=== PATIENT | male | born 1945 | race Caucasian/White ===

== ENCOUNTER → 2017-08-13 | Outpatient (CLI) | payer MEDICARE, OTHER ==
[~2017-08-13] MED LIST: ALBU90OI INH; ALBU90OI6; ARTAIN; ASPI81CH PO; ATOR10; CALCAVITD; CHOL10002 PO; CYCL10 PO; DIAZ5; DIAZ5 PO; DIGO.125 PO; DILT120ERA PO; DILTIAZEM 24HR180 M1; DONE10 PO; ELIQUIS5 MG; ERGO400 PO; FURO20 PO; GUAI600T33 PO; HYDACE5 PO; METO50 PO; MULVITMIND PO; MUSCLE RELAXER; NYST100SU PO; OMEP20ER PO; PRED10 PO; TIZANIDINE HCL2 MG; TIZANIDINE HCL2 MG PO; Trihexyphenidyl5 MG; Trihexyphenidyl5 MG PO; VICODIN 5-3001 EACH PO; VITAMIN D PO; WARF2.5 PO; WARF5 PO
[2017-08-13 12:39] LABS: International Normalized Ratio 1.78; Prothrombin Time Results 18.8 Sec (9.7-11.5)
== END | disposition home or self-care (01) ==
LOC: LAB SHORT 12:02
PROVIDERS: Internal Medicine Interventional Cardiology
DX: I48.92 Unspecified atrial flutter (principal); I48.91 Unspecified atrial fibrillation
CPT/HCPCS: 36415; 85610

== ENCOUNTER 2017-09-20 07:07 | Day surgery (SDC) | payer MEDICARE, OTHER ==
[~2017-09-20] VITALS: Ht 139.7 cm; Wt 73.0 kg
== END 2017-09-20 22:45 | disposition home or self-care (01) ==
LOC: MHTC 07:07
PROC: 4A023FZ Measurement of Cardiac Rhythm, Percutaneous Approach (ICD-10-PCS; principal; 2017-09-20)
PROC: 4A0234Z Measurement of Cardiac Electrical Activity, Percutaneous Approach (ICD-10-PCS; principal; 2017-09-20)
PROC: 02583ZZ Destruction of Conduction Mechanism, Percutaneous Approach (ICD-10-PCS; principal; 2017-09-20)
PROC: 02K83ZZ Map Conduction Mechanism, Percutaneous Approach (ICD-10-PCS; principal; 2017-09-20)
DX: I48.92 Unspecified atrial flutter (principal); K21.9 Gastro-esophageal reflux disease without esophagitis; E88.81 Metabolic syndrome and other insulin resistance; E78.5 Hyperlipidemia, unspecified; I50.22 Chronic systolic (congestive) heart failure; I34.0 Nonrheumatic mitral (valve) insufficiency; Z86.73 Personal history of transient ischemic attack (TIA), and cerebral infarction without residual deficits; Z79.899 Other long term (current) drug therapy; Z79.01 Long term (current) use of anticoagulants; Z87.891 Personal history of nicotine dependence; Z98.1 Arthrodesis status; Z85.820 Personal history of malignant melanoma of skin; Z90.49 Acquired absence of other specified parts of digestive tract
CPT/HCPCS: 76937; 93613; 93623; 93653; 99152; 99153; C1731; C1732; C1769; C1893; C1894; J1644; J2250; J3010; J7030; J7040; J7050

== ENCOUNTER 2019-02-10 11:40 | Observation (INO) | payer MEDICARE, OTHER ==
[~2019-02-10] VITALS: Ht 170.2 cm; Wt 74.2 kg
[~2019-02-10 11:40] MED LIST changes: -CHOL10002 PO; -CYCL10 PO; -Trihexyphenidyl5 MG; -VICODIN 5-3001 EACH PO
[2019-02-10 12:09] LABS: BASOPHILS ABSOLUTE AUTO 0.07 K/mm3 (0.00-0.23); BASOPHILS PERCENT AUTO 1 % (0-2); EOSINOPHILS ABSOLUTE AUTO 0.28 K/mm3 (0.00-0.68); EOSINOPHILS PERCENT AUTO 2 % (0-6); Hematocrit 41.6 % (37.0-53.0); IMMATURE GRAN ABSOLUTE AUTO 0.03 K/mm3 (0.00-0.10); IMMATURE GRAN PERCENT AUTO 0 % (0-1); LYMPHOCYTES ABSOLUTE AUTO 4.04 K/mm3 (0.84-5.20); LYMPHOCYTES PERCENT AUTO 34 % (21-46); MONOCYTES ABSOLUTE AUTO 1.03 K/mm3 (0.16-1.47); MONOCYTES PERCENT AUTO 9 % (4-13); Mean Corpuscular HGB Conc 33.7 g/dL (31.5-36.5); Mean Corpuscular Volume 101 fL (80-100); Mean Platelet Volume 11.4 fL (9.1-12.4); NEUTROPHILS ABSOLUTE AUTO 6.37 K/mm3 (1.96-9.15); NEUTROPHILS PERCENT AUTO 54 % (41-73); NRBC ABSOLUTE 0.02 K/mm3 (0.00-0.02); NRBC Auto 0.2 /100 WBC (0.0-0.2); Platelet Count 314 K/mm3 (150-400); RDW Coefficient Variation 14.7 % (11.7-14.2); RDW Standard Deviation 54.4 fL (35.1-46.3); Red Blood Cell Count 4.12 M/mm3 (4.30-5.90); White Blood Cell Count 11.82 K/mm3 (4.00-11.30)
[2019-02-10 12:28] LABS: Alanine Aminotransfer (ALT/SGP 20 U/L (12-78); Albumin, Blood 3.5 g/dL (3.4-5.0); Albumin/Globulin Ratio 0.9 (0.8-1.8); Alk Phos 90 U/L (50-136); Anion Gap 8 mmol/L (6-16); Aspartate Aminotrans (AST/SGOT 18 U/L (12-37); Bilirubin, Total 0.5 mg/dL (0.1-1.0); Blood Urea Nitrogen 10 mg/dL (8-24); Bun/Creatinine Ratio 12.3 (12.0-20.0); CO2, Blood 23 mmol/L (21-32); Calcium, Blood 8.5 mg/dL (8.5-10.1); Chloride, Blood 109 mmol/L (98-108); Creatinine, Blood 0.81 mg/dL (0.60-1.20); Glomerular Filtration Rate >60 (60-); Glucose, Blood 132 mg/dL (70-99); Magnesium, Blood 1.9 mg/dL (1.6-2.4); Sodium, Blood 140 mmol/L (136-145); Total Protein, Blood 7.5 g/dL (6.4-8.2); Troponin I 0.062 ng/mL (0.000-0.040)
[2019-02-10] MEDS ORDERED: Hydrocodone-Ap1 EA23 PO (12:28)
[2019-02-10 12:33] LABS: International Normalized Ratio 1.2; Prothrombin Time Results 12.5 Sec (9.7-11.5)
[2019-02-10] MEDS ORDERED: OMEP20ER PO (12:40)
[2019-02-10] MEDS ORDERED: DIAZ5 PO (12:40)
[2019-02-10] MEDS ORDERED: Trihexyphenidyl5 MG PO (12:41)
[2019-02-10] MEDS ORDERED: Cyclobenzaprine5 MG PO (12:41)
[2019-02-10] MEDS ORDERED: CHOL10002 PO (12:45)
[2019-02-10] MEDS ORDERED: THERA1 EACH PO (12:46)
--- NOTE | 2019-02-10 19:41 | NUR ---
ARRIVAL AND SHIFT SUMMARY PT ARRIVED TO UNIT APPROX. 1745 FROM ED VIA GURNERY. PT ABLE TO AMBULATE TO BATHROOM BEFORE AMBUALTING TO BED. ORIENTED PT TO ROOM, UNIT AND POLICIES. VITAL SIGNS STABLE AND ASSESSMENT COMPLETED. PT ALERT AND ORIENTED TO SELF, PLACE AND TIME AND FOLLOWS DIRECTIONS. PT REPROTS THAT HIS MEMORY IS BAD FROM SURGERY AND STROKE WHEN HE WAS A TEENAGER. PT SHORT TERM MEMORY SEEMS TO BE BETTER THAN CUSTODIAL. PT FIDGETS ALOT. RIGHT SIDE DEFICITS NOTE. PT AHS RIGHT SIDE WEAKNESS AND RIGHT FOOT TURNS IN AND RIGHT HAND STIFF BUT PT ABLE TO FUNCTION WELL WITH THIS. PT REPORTS THAT HE IS UNABLE TO REMEMEBR NAMES OF THE MEDICATIONS HE TAKES AT HOME. ATTEMPTED TO INQUIRE ABOUT EMDICATION HISTORY AND PT REPORTS HE IS UNABLE TO REMEBER THINGS WELL. PT HEART RATE SINCE ARRIVAL TO UNIT NSR IN 80'S VIA TITLE I TEACHER. BED IN LOW POSITION, CALL LIGHT IN REACH AND PT DENIES ANY NEEDS AT THIS TIME. WILL CONTINUE TO MONITOR UNTIL HANDOFF TO NIGHTSHIFT RN.
--- NOTE | 2019-02-11 04:09 | NUR ---
CARDIZEM TURNED OFF. HR AVG 80'S
[2019-02-11 04:30] LABS: Anion Gap 7 mmol/L (6-16); Blood Urea Nitrogen 8 mg/dL (8-24); Bun/Creatinine Ratio 9.9 (12.0-20.0); CO2, Blood 25 mmol/L (21-32); Calcium, Blood 8.3 mg/dL (8.5-10.1); Chloride, Blood 107 mmol/L (98-108); Creatinine, Blood 0.81 mg/dL (0.60-1.20); Glomerular Filtration Rate >60 (60-); Glucose, Blood 118 mg/dL (70-99); Potassium, Blood 3.8 mmol/L (3.5-5.5); Sodium, Blood 139 mmol/L (136-145); Troponin I 0.102 ng/mL (0.000-0.040)
--- NOTE | 2019-02-11 05:24 | NUR ---
SHIFT SUMMARY PT SLEEPING IN ROOM COMFORTABLY AT THIS TIME. PT HEARTRATE HAS SLOWED AND RHYTHYM BECAE MORE REGULAR, PT MAINTAINED NSR IN THE 80'S FOR >3HRS. CARDIZEM GTT WAS DC'D AT 0400. PT DENIES ANY CP OR SOB. RESP EVEN UNLABORED ON RA W/ SATS >92%. PT SLEEPING WELL T/O NIGHT, CALLS APPROPRIATELY. CALL LIGHT IN REACH.
--- NOTE | 2019-02-11 07:47 | NUR ---
Assumed care of the patient after report from Jessica Meyer RN. The pt is awake, alert, and denies any discomfort or abnormal symptoms. Noted sinus rhythm since arrival to PCU yesterday at approx 1800. Premature atrial and ventricular beats noted, but no atrial fibrillation since arrival from ED. Per report, cardizem drip was turned off at 0400 after the pt's heart rate had been consistently in the 80s range for 2 hours.
--- NOTE | 2019-02-11 15:45 | NUR ---
Patient is in the discharge process and eager to leave. He is told it will be an hour or so. 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 Patient also tell about his liliana journey (He currently attends [employer] in [place]). I listen empathically, reinforce helpful attitudes and practices, conduct a life review, explore zoroastrian beliefs and provide prayer. Patient responds well and shows signs of an elevated mood.
[2019-02-11] MEDS ORDERED: DILT120 PO (16:08)
[2019-02-11] MEDS ORDERED: XARELTO20 MG PO (16:08)
== END 2019-02-11 16:33 | disposition home or self-care (01) ==
LOC: ER 11:40 → PCU 16:31 → ER 16:31 → PCU 16:31
PROVIDERS: Emergency Medicine; Family Medicine; ADMIT Hospitalist
DX: I48.0 Paroxysmal atrial fibrillation (principal); I69.351 Hemiplegia and hemiparesis following cerebral infarction affecting right dominant side; E78.5 Hyperlipidemia, unspecified; G30.9 Alzheimer's disease, unspecified; F02.80 Dementia in other diseases classified elsewhere, unspecified severity, without behavioral disturbance, psychotic disturbance, mood disturbance, and anxiety; I11.0 Hypertensive heart disease with heart failure; I50.22 Chronic systolic (congestive) heart failure; Z79.899 Other long term (current) drug therapy; Z87.74 Personal history of (corrected) congenital malformations of heart and circulatory system
CPT/HCPCS: 36415; 71045; 80048; 80053; 83735; 84484; 85025; 85610; 85730; 93005; 93010; 96365; 96366; 96375; 96376; 99285-25; G0378; J0153; J7030

== ENCOUNTER 2020-02-25 06:46 | Day surgery (SDC) | payer MEDICARE, OTHER ==
[~2020-02-25] VITALS: Ht 165.1 cm; Wt 74.0 kg
[~2020-02-25 06:46] MED LIST changes: +CHOL10002 PO; +Cyclobenzaprine5 MG PO; +DILT120 PO; +DONEPEZIL HCL10 MG PO; +Hydrocodone-Ap1 EA23 PO; +MEMA5TAB PO; +THERA1 EACH PO; +XARELTO20 MG PO
[2020-02-25] MEDS ORDERED: DILTIAZEM 24HR240 M4 PO (08:06)
[2020-02-25] MEDS ORDERED: Vitamin D2000 UNIT PO (08:06)
[2020-02-25] MEDS ORDERED: ASPI81CH PO (08:06)
--- NOTE | 2020-02-25 10:56 | NUR ---
DR. BECK HERE TO DISCUSS PROCEDURE RESULTS.
[2020-02-25] MEDS ORDERED: CLOP75 PO (12:17)
--- NOTE | 2020-02-25 12:40 | NUR ---
2 CC AIR REMOVED FROM TR BAND ON RIGHT AND LEFT. NO BLEEDING AT SITE.
--- NOTE | 2020-02-25 12:55 | NUR ---
remainder of aire removed from left TR band. no bleeding at site. Remainder of air removed from right TR band. Bleeding at site. 4 cc air instilled. No bleeding at site.
--- NOTE | 2020-02-25 13:09 | NUR ---
DISCHARGE INSTRUCTIONS GIVEN TO PATIENT AND WITH WRITTEN UND VERBAL UNDERSTANDING.
--- NOTE | 2020-02-25 14:25 | NUR ---
RIGHT TR BAND REMOVED. NO BLEEDING AT SITE. CLOTH DOTH, IMMOBILIZER AND SLING APPLIED.
--- NOTE | 2020-02-25 14:30 | NUR ---
LEFT TR BAND REMOVED. NO BLEEDING AT SITE. CLOTH DOTH, IMMOBILIZER AND SLING APPLIED.
--- NOTE | 2020-02-25 14:35 | NUR ---
IV REMOVED INTACT. 2X2,COBAN AND MANUAL PRESSURE APPLIED.
--- NOTE | 2020-02-25 14:50 | NUR ---
DISCHARGED HOME VIA WHEELCHAIR. DRIVING. SCRIPT FOR PLAVIX, STENT CARD IN FOLDER.
== END 2020-02-25 14:45 | disposition home or self-care (01) ==
LOC: MHTC 06:46
PROC: 4A023N7 Measurement of Cardiac Sampling and Pressure, Left Heart, Percutaneous Approach (ICD-10-PCS; principal; 2020-02-25)
PROC: B201YZZ Plain Radiography of Multiple Coronary Arteries using Other Contrast (ICD-10-PCS; principal; 2020-02-25)
DX: I25.118 Atherosclerotic heart disease of native coronary artery with other forms of angina pectoris (principal); E78.5 Hyperlipidemia, unspecified; K21.9 Gastro-esophageal reflux disease without esophagitis; F32.9 Major depressive disorder, single episode, unspecified; I49.3 Ventricular premature depolarization; I11.0 Hypertensive heart disease with heart failure; I50.20 Unspecified systolic (congestive) heart failure; I08.3 Combined rheumatic disorders of mitral, aortic and tricuspid valves; Z87.891 Personal history of nicotine dependence; Z79.82 Long term (current) use of aspirin; Z79.01 Long term (current) use of anticoagulants; Z79.899 Other long term (current) drug therapy; Z86.73 Personal history of transient ischemic attack (TIA), and cerebral infarction without residual deficits
CPT/HCPCS: 76937; 85347; 93454; 99152; 99153; C1725; C1769; C1874; C1887; C1894; C9600; J1644; J2250; J3010; J7030; J7040; J7050; Q9967

== ENCOUNTER 2020-11-15 09:55 | Day surgery (SDC) | payer MEDICARE, OTHER ==
[~2020-11-15] VITALS: Ht 170.2 cm; Wt 68.2 kg
[~2020-11-15 09:55] MED LIST changes: +CLOP75 PO; +DILTIAZEM 24HR240 M4 PO; +Vitamin D2000 UNIT PO
[2020-11-15] MEDS ORDERED: ATOR20 PO (11:05)
[2020-11-15] MEDS ORDERED: TAMS.4ER PO (11:05)
--- NOTE | 2020-11-15 14:42 | NUR ---
ARRIVAL TO UNIT PT ARRIVED FROM PACU. REPORTS PAIN AT 4 OR 5 OUT OF 10. PT STATES THIS IS TOLERABLE FOR HIM. IV FLUIDS INFUSING FROM PACU. PT ARRIVED ON 3L SATS 97% TITRATED DOWN TO 2L CURRENTLY 98%. WILL CONTINUE TO TITRATE DOWN. PT DENIES OXYGEN AT BASELINE. Shashank ACUÑA IS CDI. POLAR ANYA IS ON AND IN PLACE. SCD'S ON. PT HAS CALL LIGHT IN REACH, EDUCATED ON ITS USE. CURRENTLY EATING JELLO AND TAKING SMALL SIPS OF WATER, DENIES NAUSEA.
--- NOTE | 2020-11-15 18:26 | NUR ---
SHIFT SUMMARY S/P LTHA PT AA0X4, AQUACEL IS CDI. POLAR ANYA IN PLACE. PT MEDICATED FOR PAIN PER EMAR. REPORTS 8/10 PAIN. CURRENTLY PAIN IS TOLERABLE FOR PATIENT. ABLE TO WORK WITH THERAPY, PT REPORTS FEELING BETTER AFTER MOVING. DENIES N/V, TOLERATING PO WELL. WEAKNESS ON RIGHT SIDE OF BODY IS NORMAL FOR PATIENT R/T STROKE WHEN HE WAS 13. PLAN IS TO WORK WITH THERAPY AGAIN TOMORROW.
[2020-11-16 04:50] LABS: BASOPHILS ABSOLUTE AUTO 0.03 K/mm3 (0.00-0.23); BASOPHILS PERCENT AUTO 0 % (0-2); EOSINOPHILS PERCENT AUTO 0 % (0-6); Hematocrit 33.3 % (37.0-53.0); IMMATURE GRAN ABSOLUTE AUTO 0.13 K/mm3 (0.00-0.10); IMMATURE GRAN PERCENT AUTO 1 % (0-1); LYMPHOCYTES PERCENT AUTO 9 % (21-46); MONOCYTES ABSOLUTE AUTO 2.46 K/mm3 (0.16-1.47); MONOCYTES PERCENT AUTO 10 % (4-13); Mean Corpuscular HGB 33.7 pg (26.0-34.0); Mean Corpuscular Volume 102 fL (80-100); NEUTROPHILS ABSOLUTE AUTO 19.01 K/mm3 (1.96-9.15); NEUTROPHILS PERCENT AUTO 80 % (41-73); Platelet Count 233 K/mm3 (150-400); RDW Coefficient Variation 13.9 % (11.7-14.2); RDW Standard Deviation 52.7 fL (35.1-46.3); Red Blood Cell Count 3.26 M/mm3 (4.30-5.90); White Blood Cell Count 23.83 K/mm3 (4.00-11.30)
[2020-11-16 05:11] LABS: Anion Gap 7 mmol/L (6-16); Blood Urea Nitrogen 18 mg/dL (8-24); Bun/Creatinine Ratio 15.8 (12.0-20.0); CO2, Blood 25 mmol/L (21-32); Calcium, Blood 8.3 mg/dL (8.5-10.1); Chloride, Blood 103 mmol/L (98-108); Creatinine, Blood 1.14 mg/dL (0.60-1.20); Glomerular Filtration Rate >60 (60-); Glucose, Blood 203 mg/dL (70-99); Magnesium, Blood 1.8 mg/dL (1.6-2.4); Potassium, Blood 4.3 mmol/L (3.5-5.5); Sodium, Blood 135 mmol/L (136-145)
--- NOTE | 2020-11-16 06:35 | NUR ---
SHIFT SUMMARY A/OX3, AMBULATING HALLS WITH 1 ASSIST FWW AND GB. C/O PAIN TO L. HIP, MEDICATED PER EMAR. CURRENTLY REPORTS 07/11 PAIN. AQUACEL C/D/I, POLAR PACK IN PLACE. ENCOURAGED USE OF INCENTIVE SPIROMETER, CONTINUE TO REINFORCE. VSS, NO ACUTE CHANGES AT THIS TIME. BED IN LOWEST POSITION WITH CALL LIGHT IN REACH. WILL CONTINUE TO MONITOR AND REPORT TO ONCOMING RN.
[2020-11-16] MEDS ORDERED: ACET500 PO (12:22)
[2020-11-16] MEDS ORDERED: OXYC5 PO (12:23)
--- NOTE | 2020-11-16 13:30 | NUR ---
DISCHARGE SUMMARY PT A&OX3-4, SONU PO, VOIDING, PAIN MANAGED, AMB W/FWW & GB & SBA. PRESENT FOR DC INSTRUCTIONS. DC INSTRUCTIONS PROVIDED. PT AND REP UNDERSTANDING THOSE INSTRUCTIONS INCLUDING CALL DR FOR PT ORDER AND FU APPT SCHEDULE, WHEN AND HOW TO CHANGE DRESSINGS, SHORT FREQUENT AMB WITH REST PERIODS WITH BLE ELEVATED, USE POLAR ANYA ( REP HAVING ICE BOTTLES READY). PT LEFT FLOOR VIA WC WITH ALL PERSONAL POSSESSIONS INCLUDING 2 AQUACEL DRESSINGS AND 1 NARC SCRIPT IN DC PACKET INSTRUCTIONS. IV DC'D.
== END 2020-11-16 13:28 | disposition home or self-care (01) ==
LOC: SURS 09:55 → ORSCMMR 09:55 → ORD 11:45 → ORSCMMR 11:45 → SURS 14:38 → ORSCMMR 11-16 13:28
PROVIDERS: Orthopaedic Surgery
PROC: 0SRB0JA Replacement of Left Hip Joint with Synthetic Substitute, Uncemented, Open Approach (ICD-10-PCS; principal; 2020-11-15 11:45)
DX: M16.12 Unilateral primary osteoarthritis, left hip (principal); G47.33 Obstructive sleep apnea (adult) (pediatric); F32.9 Major depressive disorder, single episode, unspecified; E78.5 Hyperlipidemia, unspecified; Z86.73 Personal history of transient ischemic attack (TIA), and cerebral infarction without residual deficits; Z79.899 Other long term (current) drug therapy
CPT/HCPCS: 36415; 72170; 80048; 83735; 85025; 97110; 97116; 97162; A9270; C1776; J0171; J0690; J0735; J1100; J1885; J2250; J2405; J2704; J2795; J3010; J7120

== ENCOUNTER → 2022-12-13 | Outpatient (CLI) | payer MEDICARE, OTHER ==
[~2022-12-13] MED LIST changes: +ACET500 PO; +ATOR20 PO; +OXYC5 PO; +TAMS.4ER PO
[2022-12-13 13:00] LABS: BASOPHILS ABSOLUTE AUTO 0.11 K/mm3 (0.00-0.23); BASOPHILS PERCENT AUTO 1 % (0-2); EOSINOPHILS ABSOLUTE AUTO 0.86 K/mm3 (0.00-0.68); EOSINOPHILS PERCENT AUTO 7 % (0-6); Hematocrit 39.4 % (37.0-53.0); Hemoglobin 13.2 g/dL (13.5-17.5); IMMATURE GRAN ABSOLUTE AUTO 0.04 K/mm3 (0.00-0.10); IMMATURE GRAN PERCENT AUTO 0 % (0-1); LYMPHOCYTES ABSOLUTE AUTO 3.68 K/mm3 (0.84-5.20); LYMPHOCYTES PERCENT AUTO 29 % (21-46); MONOCYTES ABSOLUTE AUTO 1.15 K/mm3 (0.16-1.47); MONOCYTES PERCENT AUTO 9 % (4-13); Mean Corpuscular HGB 32.4 pg (26.0-34.0); Mean Corpuscular HGB Conc 33.5 g/dL (31.5-36.5); Mean Corpuscular Volume 97 fL (80-100); Mean Platelet Volume 12.2 fL (9.1-12.4); NEUTROPHILS ABSOLUTE AUTO 6.96 K/mm3 (1.96-9.15); NEUTROPHILS PERCENT AUTO 54 % (41-73); Platelet Count 323 K/mm3 (150-400); RDW Coefficient Variation 14.5 % (11.7-14.2); RDW Standard Deviation 51.9 fL (35.1-46.3); Red Blood Cell Count 4.07 M/mm3 (4.30-5.90)
[2022-12-13 13:54] LABS: Alanine Aminotransfer (ALT/SGP 29 U/L (12-78); Albumin, Blood 3.7 g/dL (3.4-5.0); Albumin/Globulin Ratio 0.9 (0.8-1.8); Alk Phos 125 U/L (50-136); Anion Gap 8 mmol/L (6-16); Aspartate Aminotrans (AST/SGOT 25 U/L (12-37); Bilirubin, Total 0.4 mg/dL (0.1-1.0); Blood Urea Nitrogen 18 mg/dL (8-24); Bun/Creatinine Ratio 19.2 (12.0-20.0); CHOL/HDL RATIO 2.1; CO2, Blood 25 mmol/L (21-32); Calcium, Blood 9.1 mg/dL (8.5-10.1); Chloride, Blood 103 mmol/L (98-108); Cholesterol 129 mg/dL (50-200); Creatinine, Blood 0.94 mg/dL (0.60-1.20); Globulin, Blood 4.1 g/dL (2.2-4.0); Glomerular Filtration Rate 83 (60-); Glucose, Blood 348 mg/dL (70-99); HDL Cholesterol 62 mg/dL (>39); LDL/HDL RATIO 0.8; Low Density Lipoprotein Chol 48 mg/dL (0-110); PSA, %Free 20.3 %; Potassium, Blood 3.8 mmol/L (3.5-5.5); Sodium, Blood 136 mmol/L (136-145); Total Protein, Blood 7.8 g/dL (6.4-8.2); Triglycerides 93 mg/dL (30-160); Very Low Density Lipoprot Chol 18 mg/dL (6-32)
== END | disposition home or self-care (01) ==
LOC: LAB 10:30 → LAB SHORT 10:30
PROVIDERS: Family Medicine
DX: I10 Essential (primary) hypertension (principal); N40.1 Benign prostatic hyperplasia with lower urinary tract symptoms; E11.8 Type 2 diabetes mellitus with unspecified complications
CPT/HCPCS: 80053; 80061; 83036; 84153; 84154; 85025

== ENCOUNTER 2023-01-13 10:17 | Emergency (ER) | payer MEDICARE, OTHER ==
[~2023-01-13] VITALS: Ht 170.2 cm; Wt 72.6 kg
[2023-01-13 11:22] LABS: BASOPHILS PERCENT AUTO 1 % (0-2); EOSINOPHILS ABSOLUTE AUTO 0.32 K/mm3 (0.00-0.68); EOSINOPHILS PERCENT AUTO 2 % (0-6); Hematocrit 38.1 % (37.0-53.0); Hemoglobin 12.4 g/dL (13.5-17.5); IMMATURE GRAN ABSOLUTE AUTO 0.06 K/mm3 (0.00-0.10); IMMATURE GRAN PERCENT AUTO 0 % (0-1); LYMPHOCYTES ABSOLUTE AUTO 2.28 K/mm3 (0.84-5.20); LYMPHOCYTES PERCENT AUTO 12 % (21-46); MONOCYTES PERCENT AUTO 8 % (4-13); Mean Corpuscular HGB 31.5 pg (26.0-34.0); Mean Corpuscular HGB Conc 32.5 g/dL (31.5-36.5); Mean Corpuscular Volume 97 fL (80-100); Mean Platelet Volume 11.5 fL (9.1-12.4); NEUTROPHILS ABSOLUTE AUTO 14.19 K/mm3 (1.96-9.15); NEUTROPHILS PERCENT AUTO 78 % (41-73); Platelet Count 307 K/mm3 (150-400); RDW Coefficient Variation 14.3 % (11.7-14.2); RDW Standard Deviation 50.3 fL (35.1-46.3); Red Blood Cell Count 3.94 M/mm3 (4.30-5.90); White Blood Cell Count 18.35 K/mm3 (4.00-11.30)
[2023-01-13 11:25] LABS: Source, Urine Clean Catch
[2023-01-13 11:37] LABS: Appearance, Urine Cloudy (Clear); Bilirubin, Urine Neg (Neg); Blood, Urine 5+ (Neg); Color, Urine Yellow (P-Yellow); Glucose Qualitative, Urine Neg (Neg); Ketones, Urine 1+ (Neg); Leukocyte Esterase, Urine 3+ (Neg); Nitrite, Urine Neg (Neg); Protein, Urine 2+ (Neg); Urobilinogen, Urine NORM (Normal)
[2023-01-13 11:49] LABS: Bacteria Many /hpf; Red Blood Cells, Urine 25-50 /hpf (0-2); Squamous Epithelial Cells Few /hpf (Few)
[2023-01-13 13:04] LABS: Albumin, Blood 3.4 g/dL (3.4-5.0); Albumin/Globulin Ratio 0.8 (0.8-1.8); Bilirubin, Total 0.7 mg/dL (0.1-1.0); Bun/Creatinine Ratio 14.3 (12.0-20.0); Calcium, Blood 9.1 mg/dL (8.5-10.1); Creatinine, Blood 1.12 mg/dL (0.60-1.20); Globulin, Blood 4.1 g/dL (2.2-4.0); Potassium, Blood 4.5 mmol/L (3.5-5.5); Total Protein, Blood 7.5 g/dL (6.4-8.2)
[2023-01-13] MEDS ORDERED: CEFP200 PO (16:02)
[2023-01-13 16:30] VITALS: BP 124/76
== END 2023-01-13 16:50 | disposition home or self-care (01) ==
LOC: ER 10:17
PROVIDERS: Physician Assistant
DX: S83.91XA Sprain of unspecified site of right knee, initial encounter (principal); R41.0 Disorientation, unspecified; N39.0 Urinary tract infection, site not specified; W19.XXXA Unspecified fall, initial encounter; Z79.899 Other long term (current) drug therapy; Z79.82 Long term (current) use of aspirin; I50.9 Heart failure, unspecified; I48.91 Unspecified atrial fibrillation; K21.9 Gastro-esophageal reflux disease without esophagitis; G47.30 Sleep apnea, unspecified; Z87.891 Personal history of nicotine dependence
CPT/HCPCS: 51798; 70450; 80053; 81001; 85025; 87077; 87086; 87186; 96365; 96366; 99284-25; J0696; J7030

== ENCOUNTER 2023-05-01 06:38 | Day surgery (SDC) | payer MEDICARE, OTHER ==
[~2023-05-01] VITALS: Ht 165.1 cm; Wt 72.8 kg
[2023-05-01] VITALS (16 sets, daily range): BP systolic 92–145; BP diastolic 46–78
[~2023-05-01 06:38] MED LIST changes: +CEFP200 PO; +GLIP5ER PO; +INSULANI SC
[2023-05-01] MEDS ORDERED: OXYCODONE-ACET1 EAC2 PO (08:20)
--- NOTE | 2023-05-01 09:08 | NUR ---
History, Chart, Medications and Allergies reviewed before start of procedure. Patient confirms NPO status and agrees with scheduled surgery. Pre-Op teaching done. Pt verbalizes understanding. Patient reports completing Chlorhexadine shower X2 prior to admission to hospital. Surgical site prepped with 2% Chlorhexidine cloth wipe. Patient States Post-Procedure ride home has been arranged.
--- NOTE | 2023-05-01 13:57 | NUR ---
ARRIVAL TO SURGICAL FLOOR PT ARRIVED FROM PACU AND SET UP IN ROOM 214, PLAESANTLY CONFUSED BUT FAMILY IS PRESENT AT BEDSIDE AFTER GETTING HIM SETTLED, DISCUSSED PLAN FOR TODAY, SECOND DOSE OF TXA GIVEN, PAIN TOLERABLE AT THIS TIMER. IMANI C/D/I
--- NOTE | 2023-05-01 19:07 | NUR ---
SHIFT SUMMARY PODO R JUVE, A/X4, VSS, TOLERATIN PO, PAIN WELL MANAGED, WAS UP WITH THERAPY BUT HAD AN UNSTEADY GAIT, VOIDING WELL, UP TO CHAIR AFTER HE WORKED WITH THERAPY. NO ACUTE EVENTS THIS SHIFT, CALL LIGHT IN REACH.
[2023-05-02 03:48] VITALS: BP 137/76
--- NOTE | 2023-05-02 04:31 | NUR ---
SHIFT SUMMARY NOC. PT A/O X3. PT FORGETFUL AND MILDLY CONFUSED. PT HAD HX OF DEMENTIA. PT POD 1 FOR RIGHT HIP SURGERY. PT TOLERATING PO INTAKE. DENIES PAIN AND NAUSEA THIS SHIFT. TRANSFERS WITH GAIT BELT AND SBA. PT RESTED WITH CALL LIGHT IN REACH.
[2023-05-02 04:37] LABS: BASOPHILS ABSOLUTE AUTO 0.02 K/mm3 (0.00-0.23); BASOPHILS PERCENT AUTO 0 % (0-2); EOSINOPHILS PERCENT AUTO 0 % (0-6); Hematocrit 24.6 % (37.0-53.0); Hemoglobin 7.6 g/dL (13.5-17.5); IMMATURE GRAN ABSOLUTE AUTO 0.08 K/mm3 (0.00-0.10); IMMATURE GRAN PERCENT AUTO 0 % (0-1); LYMPHOCYTES ABSOLUTE AUTO 1.26 K/mm3 (0.84-5.20); LYMPHOCYTES PERCENT AUTO 7 % (21-46); MONOCYTES ABSOLUTE AUTO 1.48 K/mm3 (0.16-1.47); MONOCYTES PERCENT AUTO 8 % (4-13); Mean Corpuscular HGB 25.9 pg (26.0-34.0); Mean Corpuscular HGB Conc 30.9 g/dL (31.5-36.5); Mean Corpuscular Volume 84 fL (80-100); Mean Platelet Volume 11.3 fL (9.1-12.4); NEUTROPHILS ABSOLUTE AUTO 15.65 K/mm3 (1.96-9.15); NEUTROPHILS PERCENT AUTO 85 % (41-73); Platelet Count 265 K/mm3 (150-400); RDW Coefficient Variation 17.9 % (11.7-14.2); RDW Standard Deviation 55.1 fL (35.1-46.3); Red Blood Cell Count 2.94 M/mm3 (4.30-5.90); White Blood Cell Count 18.49 K/mm3 (4.00-11.30)
[2023-05-02 05:08] LABS: Bun/Creatinine Ratio 21.1 (12.0-20.0); Calcium, Blood 8.2 mg/dL (8.5-10.1); Creatinine, Blood 1.09 mg/dL (0.60-1.20); Potassium, Blood 4.3 mmol/L (3.5-5.5)
[2023-05-02 07:05] VITALS: BP 144/73
[2023-05-02] MEDS ORDERED: CELE200 PO (11:33)
--- NOTE | 2023-05-02 12:35 | NUR ---
DISCHARGE SUMMARY PT A&OX2-3, VSS/RA, SONU PO, VOIDING, AMB SBA FWW/GB, PAIN MANAGED, IV DC'D. DC INS PROVIDED. PT/SPOUSE/DAUGHTER SHELLIE TOMAS UNDERSTANDING THOSE INSTRUCTIONS, INCLUDING DVT PROPHYLAXIS, BETINA HOSE, DRESSING CHANGES, FU APPT WITH DR. MILTON STANLEY VIA WC WITH [employer]TH [employer]ATE TO GO HOME WITH , WITH ALL PERSONAL POSSESSIONS INCLUDING DC INS, POLAR ANYA, AQUACEL DRESSINGS, SCRIPT.
== END 2023-05-02 11:47 | disposition home or self-care (01) ==
LOC: ORSCMMR 06:38 → ORD 07:30 → ORSCMMR 08:15 → ORD 08:15 → SURS 11:59 → ORSCMMR 11:59 → SURS 05-02 11:47
PROVIDERS: Orthopaedic Surgery
PROC: 0SR90JZ Replacement of Right Hip Joint with Synthetic Substitute, Open Approach (ICD-10-PCS; principal; 2023-05-01 08:15)
DX: M16.11 Unilateral primary osteoarthritis, right hip (principal); E11.9 Type 2 diabetes mellitus without complications; I48.91 Unspecified atrial fibrillation; Z79.01 Long term (current) use of anticoagulants; Z86.73 Personal history of transient ischemic attack (TIA), and cerebral infarction without residual deficits
CPT/HCPCS: 36415; 72170; 80048; 82947; 85025; 97110; 97116; 97162; A9270; C1776; J0171; J0690; J0735; J1815; J1885; J2250; J2405; J2704; J2795; J3010; J7120; Q2036

== ENCOUNTER 2023-05-22 10:05 | Emergency (ER) | payer MEDICARE, OTHER ==
[~2023-05-22] VITALS: Ht 165.1 cm; Wt 72.6 kg
[~2023-05-22 10:05] MED LIST changes: +CELE200 PO; +OXYCODONE-ACET1 EAC2 PO
[2023-05-22 10:44] LABS: BASOPHILS ABSOLUTE AUTO 0.07 K/mm3 (0.00-0.23); BASOPHILS PERCENT AUTO 0 % (0-2); EOSINOPHILS ABSOLUTE AUTO 0.01 K/mm3 (0.00-0.68); EOSINOPHILS PERCENT AUTO 0 % (0-6); Hematocrit 21.7 % (37.0-53.0); Hemoglobin 6.6 g/dL (13.5-17.5); IMMATURE GRAN ABSOLUTE AUTO 0.22 K/mm3 (0.00-0.10); IMMATURE GRAN PERCENT AUTO 1 % (0-1); LYMPHOCYTES ABSOLUTE AUTO 0.79 K/mm3 (0.84-5.20); LYMPHOCYTES PERCENT AUTO 3 % (21-46); MONOCYTES ABSOLUTE AUTO 1.01 K/mm3 (0.16-1.47); MONOCYTES PERCENT AUTO 4 % (4-13); Mean Corpuscular HGB 24.5 pg (26.0-34.0); Mean Corpuscular HGB Conc 30.4 g/dL (31.5-36.5); Mean Corpuscular Volume 81 fL (80-100); Mean Platelet Volume 10.8 fL (9.1-12.4); NEUTROPHILS ABSOLUTE AUTO 26.98 K/mm3 (1.96-9.15); NEUTROPHILS PERCENT AUTO 93 % (41-73); Platelet Count 551 K/mm3 (150-400); RDW Coefficient Variation 18.9 % (11.7-14.2); RDW Standard Deviation 55.9 fL (35.1-46.3); Red Blood Cell Count 2.69 M/mm3 (4.30-5.90); White Blood Cell Count 29.08 K/mm3 (4.00-11.30)
[2023-05-22 11:28] LABS: International Normalized Ratio 1.37; Prothrombin Time Results 14.1 Sec (9.7-11.5)
[2023-05-22 11:42] LABS: BASOPHILS PERCENT MAN 0 % (0-2); EOSINOPHILS PERCENT MAN 0 % (0-6); LYMPHOCYTES ABSOLUTE MAN 0.87 K/mm3 (0.84-5.20); LYMPHOCYTES PERCENT MAN 3 % (21-46); MONOCYTES ABSOLUTE MAN 0.29 K/mm3 (0.16-1.47); MONOCYTES PERCENT MAN 1 % (4-13); NEUTROPHILS ABSOLUTE MAN 27.91 K/mm3 (1.96-9.15); SEG NEUTROPHILS PERCENT MAN 96 % (41-73); TOTAL CELLS COUNTED 100
[2023-05-22 11:45] LABS: Bun/Creatinine Ratio 22.5 (12.0-20.0); Calcium, Blood 8.1 mg/dL (8.5-10.1); Creatinine, Blood 0.98 mg/dL (0.60-1.20); Potassium, Blood 4.4 mmol/L (3.5-5.5)
[2023-05-22 12:26] LABS: Source, Urine Clean Catch
[2023-05-22 12:30] LABS: Appearance, Urine Clear (Clear); Bilirubin, Urine Neg (Neg); Blood, Urine 3+ (Neg); Color, Urine Yellow (P-Yellow); Glucose Qualitative, Urine 1+ (Neg); Ketones, Urine Neg (Neg); Leukocyte Esterase, Urine Neg (Neg); Nitrite, Urine Neg (Neg); Protein, Urine Neg (Neg); Urobilinogen, Urine 1+ (Normal)
[2023-05-22 12:37] LABS: Bacteria Not Seen /hpf; Mucus Light (0-Heavy); Squamous Epithelial Cells Not Seen /hpf (Few); White Blood Cells, Urine 0-2 /hpf (0-5)
[2023-05-22 18:00] VITALS: BP 136/83
== END 2023-05-22 18:06 | disposition home or self-care (01) ==
LOC: ER 10:05
PROVIDERS: Emergency Medicine
DX: R04.0 Epistaxis (principal); D64.9 Anemia, unspecified; I48.91 Unspecified atrial fibrillation; K21.9 Gastro-esophageal reflux disease without esophagitis; E78.5 Hyperlipidemia, unspecified; G47.30 Sleep apnea, unspecified; Z87.891 Personal history of nicotine dependence; Z96.641 Presence of right artificial hip joint; Z79.02 Long term (current) use of antithrombotics/antiplatelets; Z79.82 Long term (current) use of aspirin; Z79.4 Long term (current) use of insulin; Z79.891 Long term (current) use of opiate analgesic; Z79.899 Other long term (current) drug therapy
CPT/HCPCS: 36430; 71046; 80048; 81001; 85025; 85610; 85730; 86850; 86900; 86901; 86923; 99285-25; A9270; J7030; P9016

== ENCOUNTER 2023-11-06 06:36 | Day surgery (SDC) | payer MEDICARE, OTHER ==
[~2023-11-06] VITALS: Ht 167.6 cm; Wt 68.3 kg
[2023-11-06] VITALS (16 sets, daily range): BP systolic 106–145; BP diastolic 56–95
[~2023-11-06 06:36] MED LIST changes: +Acetaminophen 500 MG Tab PO SCH; +CeFAZolin Sodium 2,000 MG in NS 100 ML IV SCH; +Chlorhexidine Mouth Care 15 ML UDC MT SCH; +Lactated Ringer's 1,000 ML IV SCH; +OxyCODONE HCL 10 MG TABCR PO SCH; +Ropivacaine 0.5% HCl/Pf 123.125 MG,EPINEPHrine HCL 0.25 MG,Ketorolac Tromethamine 15 MG... INFIL SCH; +Tranexamic Acid 100 ML IV SCH
--- NOTE | 2023-11-06 07:23 | NUR ---
Wheelchaired into Day Surgery. History, Chart, Medications and Allergies reviewed before start of procedure. Pre-Op teaching done. Pt verbalizes understanding.
[2023-11-06] MEDS ORDERED: CHLOROPROCAINE HCL 3% INJ ONE (08:05)
[2023-11-06] MEDS ORDERED: FentaNYL Citrate 50 MCG/ML 2 ML Injection ONE (08:45)
[2023-11-06] MEDS ORDERED: Lidocaine HCl 2% 20 ML MDV ONE (08:45)
[2023-11-06] MEDS ORDERED: Ondansetron HCl 2 MG / ML 2ML Vial ONE (08:45)
[2023-11-06] MEDS ORDERED: Dexamethasone Sod Phos 10 MG/ML 1ML VIAL ONE (08:45)
[2023-11-06] MEDS ORDERED: propofoL 20 ML IV ONE (08:45)
[2023-11-06] MEDS ORDERED: Ketorolac Tromethamine 30mg Vial ONE (09:09)
[2023-11-06] MEDS ORDERED: HYDROmorphone HCl/Pf 1MG SYR IV PRN ×2 (09:10→09:45)
[2023-11-06] MEDS ORDERED: FentaNYL Citrate 50 MCG/ML 2 ML Injection IV PRN (09:15)
[2023-11-06] MEDS ORDERED: Albuterol 2.5 MG/3 ML VIAL INH PRN (09:15)
[2023-11-06] MEDS ORDERED: Prochlorperazine Edisylate 10 mg Vial IV PRN (09:15)
[2023-11-06] MEDS ORDERED: FentaNYL Citrate 50 MCG/ML 5 ML Injection ONE (09:22)
[2023-11-06] MEDS ORDERED: Diazepam 5 MG Tab PO PRN (09:35)
[2023-11-06] MEDS ORDERED: Promethazine HCl 25 MG Tab PO PRN (09:35)
[2023-11-06] MEDS ORDERED: Bisacodyl 10 MG Supp PR PRN (09:40)
[2023-11-06] MEDS ORDERED: Ondansetron HCl 2 MG / ML 2ML Vial IV PRN (09:40)
[2023-11-06] MEDS ORDERED: Metoclopramide HCl 5MG / ML 2ML Vial IV PRN (09:40)
[2023-11-06] MEDS ORDERED: OxyCODONE HCL 5 MG TAB PO PRN ×2 (09:40)
[2023-11-06] MEDS ORDERED: Magnesium Hydroxide Conc 10 ML UDC PO PRN (09:40)
[2023-11-06] MEDS ORDERED: DiphenhydrAMINE HCL 25 MG Cap PO PRN (09:45)
[2023-11-06] MEDS ORDERED: Lactated Ringer's 1,000 ML IV SCH (09:45)
[2023-11-06] MEDS ORDERED: HYDROmorphone HCl/Pf 1MG SYR ONE ×2 (10:16→10:58)
[2023-11-06] MEDS ORDERED: Insulin Regular 100 UNIT/ML 10ML Vial SC SCH (11:30)
[2023-11-06] MEDS ORDERED: Acetaminophen 500 MG Tab PO SCH (16:00)
[2023-11-06] MEDS ORDERED: CeFAZolin Sodium 2,000 MG in NS 100 ML IV SCH (17:00)
[2023-11-06] MEDS ORDERED: Ketorolac Tromethamine 15mg Vial IV SCH (18:00)
--- NOTE | 2023-11-06 18:48 | NUR ---
SHIFT SUMMARY PT ARRIVED TO SURGICAL FLOOR VIA HOSPITAL BED FROM HAVING RTKA. EATING DRINKING AND VOIDING WELL. VSS. ROOM AIR. PPP. INCISION SITE C/D/I, FREE OF DRAINAGE AND COVERED WITH AQUACEL AND SYMONE BANDAGE. FORGETFUL. WORKED WITH PT THIS AFTERNOON. PLANNING TO DISCHARGE TOMORROW. BED AND CHAIR ALARMS USED THROUGHOUT SHIFT. CALL LIGHT WITHIN REACH.
[2023-11-06] MEDS ORDERED: Docusate Sodium 100 MG Cap PO SCH (21:00)
[2023-11-06] MEDS ORDERED: Trihexyphenidyl HCL 2 MG Tab PO SCH (21:00)
[2023-11-06] MEDS ORDERED: Memantine HCL 5 MG Tab PO SCH (21:00)
[2023-11-07 03:54] VITALS: BP 152/80
--- NOTE | 2023-11-07 04:31 | NUR ---
SHIFT SUMMARY S/P R TKA. AQUACEL/SYMONE WRAP REMAINS CDI WITH POLAR PACK IN PLACE. UP WITH 1 SBA USING FWW/GB. TYLENOL/TORADOL FOR PAIN MANAGEMENT. PLAN TO WORK WITH THERAPY AND DISCHARGE HOME TODAY. VSS. USES CALL LIGHT APPROPRIATELY. HAS BEEN MOSTLY ALERT AND ORIENTED WITH OCCASSIONAL FORGETFULNESS, BUT VERY COOPERATIVE AND PLEASANT. BED ALARM IN PLACE FOR SAFETY.
[2023-11-07 05:16] LABS: BASOPHILS ABSOLUTE AUTO 0.04 K/mm3 (0.00-0.23); BASOPHILS PERCENT AUTO 0 % (0-2); EOSINOPHILS PERCENT AUTO 0 % (0-6); Hemoglobin 10.5 g/dL (13.5-17.5); IMMATURE GRAN ABSOLUTE AUTO 0.26 K/mm3 (0.00-0.10); IMMATURE GRAN PERCENT AUTO 1 % (0-1); LYMPHOCYTES PERCENT AUTO 5 % (21-46); MONOCYTES ABSOLUTE AUTO 1.97 K/mm3 (0.16-1.47); MONOCYTES PERCENT AUTO 7 % (4-13); Mean Corpuscular HGB 30.4 pg (26.0-34.0); Mean Corpuscular HGB Conc 32.8 g/dL (31.5-36.5); Mean Corpuscular Volume 93 fL (80-100); Mean Platelet Volume 11.6 fL (9.1-12.4); NEUTROPHILS ABSOLUTE AUTO 26.52 K/mm3 (1.96-9.15); NEUTROPHILS PERCENT AUTO 88 % (41-73); Platelet Count 294 K/mm3 (150-400); RDW Coefficient Variation 18.1 % (11.7-14.2); RDW Standard Deviation 61.3 fL (35.1-46.3); Red Blood Cell Count 3.45 M/mm3 (4.30-5.90); White Blood Cell Count 30.29 K/mm3 (4.00-11.30)
[2023-11-07 05:49] LABS: BASOPHILS PERCENT MAN 0 % (0-2); EOSINOPHILS PERCENT MAN 0 % (0-6); LYMPHOCYTES PERCENT MAN 3 % (21-46); MONOCYTES ABSOLUTE MAN 1.21 K/mm3 (0.16-1.47); MONOCYTES PERCENT MAN 4 % (4-13); NEUTROPHILS ABSOLUTE MAN 28.16 K/mm3 (1.96-9.15); SEG NEUTROPHILS PERCENT MAN 93 % (41-73); TOTAL CELLS COUNTED 100
[2023-11-07 05:51] LABS: Bun/Creatinine Ratio 25.2 (12.0-20.0); Calcium, Blood 8.7 mg/dL (8.5-10.1); Creatinine, Blood 1.03 mg/dL (0.60-1.20); Potassium, Blood 4.8 mmol/L (3.5-5.5)
[2023-11-07] MEDS ORDERED: Omeprazole 20 MG CapCR PO SCH (06:00)
[2023-11-07 07:22] VITALS: BP 148/78
[2023-11-07] MEDS ORDERED: Tamsulosin HCl 0.4 MG Cap PO SCH (09:00)
[2023-11-07] MEDS ORDERED: Donepezil HCl 5 MG Tab PO SCH (09:00)
[2023-11-07] MEDS ORDERED: Insulin Glargine-Yfgn 100 Unit/mL 3 ML SYR SC SCH (09:00)
[2023-11-07] MEDS ORDERED: dilTIAZem HCL 240 MG CAP.CD PO SCH (09:00)
[2023-11-07] MEDS ORDERED: Cholecalciferol 1000 Unit Tablet (=25MCG) PO SCH (09:00)
[2023-11-07] MEDS ORDERED: Atorvastatin 10 MG Tab PO SCH (09:00)
[2023-11-07] MEDS ORDERED: GlipiZIDE 5 MG TabCR PO SCH (09:00)
--- NOTE | 2023-11-07 10:51 | NUR ---
DISCHARGE PT HAS CLEARED THERAPY. PAIN WELL CONTROLLED. EATING, DRINKING, & VOIDING WELL. NIKHIL & POLAR PACK SENT w/ PT. ESCORTED OUT VIA W/C w/ SPOUSE.
== END 2023-11-07 10:51 | disposition home or self-care (01) ==
LOC: ORSCMMR 06:36 → ORD 08:15 → SURS 11:27 → ORSCMMR 11-07 10:51
PROVIDERS: Orthopaedic Surgery
PROC: 8E0Y0CZ Robotic Assisted Procedure of Lower Extremity, Open Approach (ICD-10-PCS; principal; 2023-11-06 08:15)
PROC: 0SRC0JA Replacement of Right Knee Joint with Synthetic Substitute, Uncemented, Open Approach (ICD-10-PCS; principal; 2023-11-06 08:15)
DX: M17.11 Unilateral primary osteoarthritis, right knee (principal); E11.9 Type 2 diabetes mellitus without complications; I48.91 Unspecified atrial fibrillation; Z86.73 Personal history of transient ischemic attack (TIA), and cerebral infarction without residual deficits; Z79.899 Other long term (current) drug therapy; Z79.84 Long term (current) use of oral hypoglycemic drugs
CPT/HCPCS: 36415; 73560-RT; 80048; 82947; 85025; 94760; 97110; 97116; 97162; A9270; C1713; C1776; J0171; J0690; J0735; J1100; J1170; J1815; J1885; J2401; J2405; J2704; J2795; J3010; J7120

== ENCOUNTER → 2024-01-01 | Outpatient (CLI) | payer MEDICARE, OTHER ==
[~2024-01-01] MED LIST changes: -Acetaminophen 500 MG Tab PO SCH; -CeFAZolin Sodium 2,000 MG in NS 100 ML IV SCH; -Chlorhexidine Mouth Care 15 ML UDC MT SCH; -Lactated Ringer's 1,000 ML IV SCH; -OxyCODONE HCL 10 MG TABCR PO SCH; -Ropivacaine 0.5% HCl/Pf 123.125 MG,EPINEPHrine HCL 0.25 MG,Ketorolac Tromethamine 15 MG... INFIL SCH; -Tranexamic Acid 100 ML IV SCH
== END | disposition home or self-care (01) ==
LOC: LAB 16:37 → LAB SHORT 16:37
DX: R82.90 Unspecified abnormal findings in urine (principal)
CPT/HCPCS: 87086

== ENCOUNTER 2024-04-09 10:13 | Emergency (ER) | payer MEDICARE, OTHER ==
[~2024-04-09] VITALS: Ht 170.2 cm; Wt 58.5 kg
[2024-04-09 10:20] VITALS: BP 120/85
[2024-04-09 11:09] LABS: BASOPHILS ABSOLUTE AUTO 0.04 K/mm3 (0.00-0.23); BASOPHILS PERCENT AUTO 0 % (0-2); EOSINOPHILS ABSOLUTE AUTO 0.01 K/mm3 (0.00-0.68); EOSINOPHILS PERCENT AUTO 0 % (0-6); Hematocrit 33.8 % (37.0-53.0); Hemoglobin 11.3 g/dL (13.5-17.5); IMMATURE GRAN ABSOLUTE AUTO 0.08 K/mm3 (0.00-0.10); IMMATURE GRAN PERCENT AUTO 1 % (0-1); LYMPHOCYTES ABSOLUTE AUTO 1.71 K/mm3 (0.84-5.20); LYMPHOCYTES PERCENT AUTO 11 % (21-46); MONOCYTES ABSOLUTE AUTO 1.36 K/mm3 (0.16-1.47); MONOCYTES PERCENT AUTO 9 % (4-13); Mean Corpuscular HGB Conc 33.4 g/dL (31.5-36.5); Mean Corpuscular Volume 93 fL (80-100); Mean Platelet Volume 11.4 fL (9.1-12.4); NEUTROPHILS ABSOLUTE AUTO 12.25 K/mm3 (1.96-9.15); NEUTROPHILS PERCENT AUTO 79 % (41-73); Platelet Count 403 K/mm3 (150-400); RDW Coefficient Variation 16.7 % (11.7-14.2); RDW Standard Deviation 55.4 fL (35.1-46.3); Red Blood Cell Count 3.64 M/mm3 (4.30-5.90); White Blood Cell Count 15.45 K/mm3 (4.00-11.30)
[2024-04-09 11:25] LABS: Albumin, Blood 3.5 g/dL (3.4-5.0); Albumin/Globulin Ratio 0.7 (0.8-1.8); Calcium, Blood 9.5 mg/dL (8.5-10.1); Creatinine, Blood 1.33 mg/dL (0.60-1.20); Globulin, Blood 4.8 g/dL (2.2-4.0); Potassium, Blood 3.5 mmol/L (3.5-5.5); Total Protein, Blood 8.3 g/dL (6.4-8.2)
[2024-04-09 11:28] LABS: International Normalized Ratio 1.28; Prothrombin Time Results 13.4 Sec (9.7-11.5)
[2024-04-09] MEDS ORDERED: CefTRIAXone Sodium 1,000 MG in NS 100 ML IV ONE (12:30)
[2024-04-09 12:34] LABS: Source, Urine Clean Catch
[2024-04-09 12:39] LABS: Appearance, Urine Clear (Clear); Bilirubin, Urine Neg (Neg); Blood, Urine 4+ (Neg); Color, Urine Amber (P-Yellow); Glucose Qualitative, Urine Neg (Neg); Ketones, Urine Neg (Neg); Leukocyte Esterase, Urine 1+ (Neg); Nitrite, Urine Neg (Neg); Protein, Urine 1+ (Neg); Specific Gravity, Urine 1.015 (1.003-1.022); Urobilinogen, Urine NORM (Normal)
[2024-04-09 13:46] LABS: Bacteria Rare /hpf; Red Blood Cells, Urine 0-2 /hpf (0-2); Squamous Epithelial Cells Rare /hpf (Few); White Blood Cells, Urine 0-2 /hpf (0-5)
== END 2024-04-09 17:48 | disposition home or self-care (01) ==
LOC: ER 10:13
PROVIDERS: Physician Assistant
DX: R33.9 Retention of urine, unspecified (principal); K80.50 Calculus of bile duct without cholangitis or cholecystitis without obstruction; E11.9 Type 2 diabetes mellitus without complications; I48.91 Unspecified atrial fibrillation; Z79.02 Long term (current) use of antithrombotics/antiplatelets; Z79.4 Long term (current) use of insulin; Z79.82 Long term (current) use of aspirin; Z79.899 Other long term (current) drug therapy
CPT/HCPCS: 51702; 74181; 80053; 81001; 85025; 85610; 87086; 96365-59; 96366-59; 99283-25; J0696

== ENCOUNTER 2024-04-17 12:14 | Emergency (ER) | payer MEDICARE, OTHER ==
[~2024-04-17] VITALS: Ht 170.2 cm; Wt 59.0 kg
[2024-04-17] MEDS ORDERED: Lidocaine 2% Jelly Uro-Jet UR ONE (13:10)
[2024-04-17 13:42] LABS: Source, Urine Foley catheter
[2024-04-17 13:45] LABS: Appearance, Urine Clear (Clear); Bilirubin, Urine Neg (Neg); Blood, Urine 3+ (Neg); Color, Urine Yellow (P-Yellow); Glucose Qualitative, Urine 1+ (Neg); Ketones, Urine Neg (Neg); Leukocyte Esterase, Urine 1+ (Neg); Nitrite, Urine Neg (Neg); Protein, Urine 2+ (Neg); Urobilinogen, Urine NORM (Normal); pH, Urine 6.5 (5.0-8.0)
[2024-04-17 14:02] LABS: Bacteria Few /hpf; Squamous Epithelial Cells Not Seen /hpf (Few)
[2024-04-17 14:30] VITALS: BP 138/76
== END 2024-04-17 14:56 | disposition home or self-care (01) ==
LOC: ER 12:14
PROVIDERS: Student in an Organized Health Care Education/Training Program
DX: R33.9 Retention of urine, unspecified (principal); I48.91 Unspecified atrial fibrillation; K21.9 Gastro-esophageal reflux disease without esophagitis; G47.30 Sleep apnea, unspecified; E78.5 Hyperlipidemia, unspecified; Z87.891 Personal history of nicotine dependence; Z79.01 Long term (current) use of anticoagulants; Z79.4 Long term (current) use of insulin; Z79.82 Long term (current) use of aspirin; Z79.899 Other long term (current) drug therapy; Z86.73 Personal history of transient ischemic attack (TIA), and cerebral infarction without residual deficits
CPT/HCPCS: 51702; 51798; 81001; 87086; 99283-25

== ENCOUNTER → 2024-04-24 | Outpatient (CLI) | payer MEDICARE, OTHER ==
[2024-04-24 12:13] LABS: BASOPHILS ABSOLUTE AUTO 0.09 K/mm3 (0.00-0.23); BASOPHILS PERCENT AUTO 1 % (0-2); EOSINOPHILS ABSOLUTE AUTO 0.69 K/mm3 (0.00-0.68); EOSINOPHILS PERCENT AUTO 5 % (0-6); Hematocrit 32.5 % (37.0-53.0); Hemoglobin 10.7 g/dL (13.5-17.5); IMMATURE GRAN ABSOLUTE AUTO 0.06 K/mm3 (0.00-0.10); IMMATURE GRAN PERCENT AUTO 0 % (0-1); LYMPHOCYTES ABSOLUTE AUTO 2.02 K/mm3 (0.84-5.20); LYMPHOCYTES PERCENT AUTO 14 % (21-46); MONOCYTES ABSOLUTE AUTO 1.43 K/mm3 (0.16-1.47); MONOCYTES PERCENT AUTO 10 % (4-13); Mean Corpuscular HGB 31.7 pg (26.0-34.0); Mean Corpuscular HGB Conc 32.9 g/dL (31.5-36.5); Mean Corpuscular Volume 96 fL (80-100); Mean Platelet Volume 10.8 fL (9.1-12.4); NEUTROPHILS ABSOLUTE AUTO 10.58 K/mm3 (1.96-9.15); NEUTROPHILS PERCENT AUTO 71 % (41-73); Platelet Count 374 K/mm3 (150-400); RDW Coefficient Variation 16.7 % (11.7-14.2); RDW Standard Deviation 58.8 fL (35.1-46.3); Red Blood Cell Count 3.38 M/mm3 (4.30-5.90); White Blood Cell Count 14.87 K/mm3 (4.00-11.30)
[2024-04-24 12:29] LABS: Albumin, Blood 2.8 g/dL (3.4-5.0); Albumin/Globulin Ratio 0.6 (0.8-1.8); Bilirubin, Total 0.5 mg/dL (0.1-1.0); Bun/Creatinine Ratio 11.5 (12.0-20.0); Calcium, Blood 8.7 mg/dL (8.5-10.1); Creatinine, Blood 0.96 mg/dL (0.60-1.20); Globulin, Blood 4.8 g/dL (2.2-4.0); Potassium, Blood 3.6 mmol/L (3.5-5.5); Total Protein, Blood 7.6 g/dL (6.4-8.2); Uric Acid, Blood 3.7 mg/dL (3.5-7.2)
== END ==
LOC: LAB SHORT 12:09 → LAB 12:09
PROVIDERS: Chiropractor
DX: M79.672 Pain in left foot (principal)
CPT/HCPCS: 80053; 84550; 85025

== ENCOUNTER 2024-06-06 09:57 | Day surgery (SDC) | payer MEDICARE, OTHER ==
[~2024-06-06] VITALS: Ht 170.2 cm; Wt 62.0 kg
[2024-06-06] VITALS (14 sets, daily range): BP systolic 115–144; BP diastolic 60–101
[~2024-06-06 09:57] MED LIST changes: +BASAGLAR K100 UNIT/6 SC
[2024-06-06] MEDS ORDERED: Heparin Sodium 1000 Units/ML 10ML MDV ONE (12:19)
[2024-06-06] MEDS ORDERED: NS 250 ML IV ONE (12:19)
[2024-06-06] MEDS ORDERED: NS 2,000 ML IV ONE (12:19)
[2024-06-06] MEDS ORDERED: Nitroglycerin 2 MG/20 ML BTL ONE (12:21)
[2024-06-06] MEDS ORDERED: Midazolam HCl 1MG / ML 2ML Vial ONE (12:59)
[2024-06-06] MEDS ORDERED: FentaNYL Citrate 50 MCG/ML 2 ML Injection ONE (13:00)
[2024-06-06] MEDS ORDERED: Verapamil HCL 2.5 MG/ML 2ML Injection ONE (14:30)
--- NOTE | 2024-06-06 15:30 | NUR ---
[facility] alert and responds appropriately. right groin site soft and nontender, no hematoma, no bleeding, dressing D&I.
--- NOTE | 2024-06-06 16:15 | NUR ---
patient sitting up in bed eating dinner, groin site remains stable
--- NOTE | 2024-06-06 17:15 | NUR ---
spoke to via phone, gave her complete discharge instructions for groin site care and prostate embolization post op instructions, no further questions.
--- NOTE | 2024-06-06 17:25 | NUR ---
PT DRESSED SELF WITHOUT ISSUE, SITE UNCHANGED; IV REMOVED-CANNULA INTACT.
--- NOTE | 2024-06-06 17:38 | NUR ---
REVIEWED DISCHARGE INSTRUCTIONS WITH PT, VERBALIZED GOOD UNDERSTANDING. PT LEFT FACILITY VIA W/C, CONDITION STABLE.
== END 2024-06-08 05:33 | disposition home or self-care (01) ==
LOC: MHTC 09:57
DX: N40.1 Benign prostatic hyperplasia with lower urinary tract symptoms (principal); N13.8 Other obstructive and reflux uropathy; R33.9 Retention of urine, unspecified; I10 Essential (primary) hypertension; E78.5 Hyperlipidemia, unspecified; K21.9 Gastro-esophageal reflux disease without esophagitis; Z87.891 Personal history of nicotine dependence; Z79.82 Long term (current) use of aspirin; Z79.4 Long term (current) use of insulin; Z79.899 Other long term (current) drug therapy
CPT/HCPCS: 37242; 75716; 75774; 76937; 99152; 99153; C1760; C1769; C1887; C1889; C1894; J1644; J2250; J3010; J7030; J7050; Q9967

== ENCOUNTER 2024-09-23 17:43 | Inpatient (IN) | payer MEDICARE, OTHER ==
[~2024-09-23] VITALS: Ht 170.2 cm; Wt 63.6 kg
[~2024-09-23 17:43] MED LIST changes: +VITAMIN D5000 UNIT PO; -Vitamin D2000 UNIT PO
[2024-09-23 19:02] LABS: BASOPHILS ABSOLUTE AUTO 0.04 K/mm3 (0.00-0.23); BASOPHILS PERCENT AUTO 0 % (0-2); EOSINOPHILS ABSOLUTE AUTO 0.08 K/mm3 (0.00-0.68); EOSINOPHILS PERCENT AUTO 1 % (0-6); Hematocrit 18.3 % (37.0-53.0); IMMATURE GRAN ABSOLUTE AUTO 0.07 K/mm3 (0.00-0.10); IMMATURE GRAN PERCENT AUTO 1 % (0-1); LYMPHOCYTES ABSOLUTE AUTO 1.44 K/mm3 (0.84-5.20); LYMPHOCYTES PERCENT AUTO 11 % (21-46); MONOCYTES PERCENT AUTO 12 % (4-13); Mean Corpuscular HGB 25.3 pg (26.0-34.0); Mean Corpuscular HGB Conc 31.1 g/dL (31.5-36.5); Mean Corpuscular Volume 81 fL (80-100); Mean Platelet Volume 10.7 fL (9.1-12.4); NEUTROPHILS ABSOLUTE AUTO 10.53 K/mm3 (1.96-9.15); NEUTROPHILS PERCENT AUTO 77 % (41-73); NRBC ABSOLUTE 0.27 K/mm3 (0.00-0.02); Platelet Count 471 K/mm3 (150-400); RDW Coefficient Variation 17.1 % (11.7-14.2); RDW Standard Deviation 50.1 fL (35.1-46.3); Red Blood Cell Count 2.25 M/mm3 (4.30-5.90); White Blood Cell Count 13.76 K/mm3 (4.00-11.30)
[2024-09-23 19:04] LABS: Hemoglobin 5.7 g/dL (13.5-17.5)
[2024-09-23 19:24] LABS: Albumin/Globulin Ratio 0.7 (0.8-1.8); Bilirubin, Total 0.5 mg/dL (0.1-1.0); Bun/Creatinine Ratio 16.4 (12.0-20.0); Calcium, Blood 8.8 mg/dL (8.5-10.1); Creatinine, Blood 1.4 mg/dL (0.60-1.20); Globulin, Blood 4.1 g/dL (2.2-4.0); Potassium, Blood 4.2 mmol/L (3.5-5.5); Total Protein, Blood 7.1 g/dL (6.4-8.2)
[2024-09-23] MEDS ORDERED: NS 1,000 ML IV ONE (20:27)
[2024-09-23 20:41] LABS: Influenza A, PCR NEGATIVE (NEGATIVE); Influenza B, PCR NEGATIVE (NEGATIVE); Resp Syncytial Virus, PCR NEGATIVE (NEGATIVE); SARS-Cov-2 (COVID-19) PCR, MMC NEGATIVE (NEGATIVE)
[2024-09-23] MEDS ORDERED: Ondansetron HCl 2 MG / ML 2ML Vial IV PRN (20:45)
[2024-09-23 23:01] VITALS: BP 132/67
[2024-09-23 23:50] VITALS: BP 122/62
[2024-09-24] VITALS (7 sets, daily range): BP systolic 110–124; BP diastolic 59–68
[2024-09-24 00:45] LABS: Hematocrit 23.6 % (37.0-53.0); Hemoglobin 7.5 g/dL (13.5-17.5)
[2024-09-24 03:11] LABS: Source, Urine Foley catheter
[2024-09-24 03:20] LABS: Appearance, Urine Cloudy (Clear); Bilirubin, Urine Neg (Neg); Blood, Urine 4+ (Neg); Color, Urine Yellow (P-Yellow); Glucose Qualitative, Urine Neg (Neg); Ketones, Urine Neg (Neg); Leukocyte Esterase, Urine 3+ (Neg); Nitrite, Urine Pos (Neg); Protein, Urine 2+ (Neg); Urobilinogen, Urine NORM (Normal)
[2024-09-24 04:03] LABS: Bacteria Many /hpf; Mucus Mod (0-Heavy); Squamous Epithelial Cells Mod /hpf (Few); White Blood Cells, Urine TNTC /hpf (0-5)
[2024-09-24] MEDS ORDERED: Omeprazole 20 MG CapCR PO SCH (06:00)
[2024-09-24 06:37] LABS: Hematocrit 23.7 % (37.0-53.0); Hemoglobin 7.5 g/dL (13.5-17.5); Mean Corpuscular HGB 25.8 pg (26.0-34.0); Mean Corpuscular HGB Conc 31.6 g/dL (31.5-36.5); Mean Corpuscular Volume 81 fL (80-100); Mean Platelet Volume 10.6 fL (9.1-12.4); NRBC ABSOLUTE 0.27 K/mm3 (0.00-0.02); NRBC Auto 1.8 /100 WBC (0.0-0.2); Platelet Count 432 K/mm3 (150-400); RDW Coefficient Variation 16.7 % (11.7-14.2); RDW Standard Deviation 49.7 fL (35.1-46.3); Red Blood Cell Count 2.91 M/mm3 (4.30-5.90); White Blood Cell Count 14.98 K/mm3 (4.00-11.30)
[2024-09-24 06:57] LABS: Bun/Creatinine Ratio 16.2 (12.0-20.0); Calcium, Blood 8.3 mg/dL (8.5-10.1); Creatinine, Blood 1.05 mg/dL (0.60-1.20); Potassium, Blood 3.8 mmol/L (3.5-5.5)
[2024-09-24] MEDS ORDERED: Insulin Human Lispro 100 Units/ML 3ML Syringe SC SCH (07:30)
[2024-09-24] MEDS ORDERED: Tamsulosin HCl 0.4 MG Cap PO SCH (09:00)
[2024-09-24] MEDS ORDERED: NS 500 ML IV SCH (11:35)
[2024-09-24] MEDS ORDERED: CefTRIAXone Sodium 1,000 MG in NS 100 ML IV SCH (12:00)
[2024-09-24] MEDS ORDERED: Ipratropium/Albuterol SulF 2.5-0.5MG/3 ML Amp INH SCH (15:15)
[2024-09-24 16:00] LABS: Hematocrit 25.7 % (37.0-53.0); Hemoglobin 8.5 g/dL (13.5-17.5)
--- NOTE | 2024-09-24 17:50 | NUR ---
PT IS ALERT TO SELF AND SITUATION. PT GOT A BAG OF PRB. PT HAD NO C/O PAIN, SOB, OR CHEST PAIN THROUGHT THE DAY.
[2024-09-24] MEDS ORDERED: Diazepam 5 MG Tab PO PRN (22:30)
[2024-09-25 03:33] VITALS: BP 128/77
[2024-09-25 06:23] LABS: BASOPHILS ABSOLUTE AUTO 0.08 K/mm3 (0.00-0.23); BASOPHILS PERCENT AUTO 1 % (0-2); EOSINOPHILS ABSOLUTE AUTO 0.64 K/mm3 (0.00-0.68); EOSINOPHILS PERCENT AUTO 5 % (0-6); Hematocrit 26.4 % (37.0-53.0); Hemoglobin 8.6 g/dL (13.5-17.5); IMMATURE GRAN ABSOLUTE AUTO 0.06 K/mm3 (0.00-0.10); IMMATURE GRAN PERCENT AUTO 1 % (0-1); LYMPHOCYTES ABSOLUTE AUTO 2.79 K/mm3 (0.84-5.20); LYMPHOCYTES PERCENT AUTO 22 % (21-46); MONOCYTES ABSOLUTE AUTO 1.73 K/mm3 (0.16-1.47); MONOCYTES PERCENT AUTO 14 % (4-13); Mean Corpuscular HGB 26.6 pg (26.0-34.0); Mean Corpuscular HGB Conc 32.6 g/dL (31.5-36.5); Mean Corpuscular Volume 82 fL (80-100); Mean Platelet Volume 10.5 fL (9.1-12.4); NEUTROPHILS ABSOLUTE AUTO 7.46 K/mm3 (1.96-9.15); NEUTROPHILS PERCENT AUTO 58 % (41-73); NRBC ABSOLUTE 0.23 K/mm3 (0.00-0.02); NRBC Auto 1.8 /100 WBC (0.0-0.2); Platelet Count 418 K/mm3 (150-400); RDW Coefficient Variation 16.9 % (11.7-14.2); RDW Standard Deviation 49.8 fL (35.1-46.3); Red Blood Cell Count 3.23 M/mm3 (4.30-5.90); White Blood Cell Count 12.76 K/mm3 (4.00-11.30)
[2024-09-25 06:44] LABS: Albumin, Blood 2.7 g/dL (3.4-5.0); Albumin/Globulin Ratio 0.7 (0.8-1.8); Bilirubin, Total 0.7 mg/dL (0.1-1.0); Calcium, Blood 8.1 mg/dL (8.5-10.1); Creatinine, Blood 1.08 mg/dL (0.60-1.20); Globulin, Blood 3.9 g/dL (2.2-4.0); Magnesium, Blood 1.6 mg/dL (1.6-2.4); Total Protein, Blood 6.6 g/dL (6.4-8.2)
[2024-09-25 07:38] VITALS: BP 123/70
[2024-09-25] MEDS ORDERED: Clopidogrel Bisulfate 75 MG Tab PO SCH (09:00)
[2024-09-25] MEDS ORDERED: dilTIAZem HCL 240 MG CAP.CD PO SCH (09:00)
[2024-09-25] MEDS ORDERED: OxyCODONE 10/Acetamin 325 TABLET PO SCH (09:00)
[2024-09-25] MEDS ORDERED: Finasteride 5 MG Tab PO SCH (09:00)
[2024-09-25] MEDS ORDERED: Trihexyphenidyl HCL 2 MG Tab PO SCH (09:00)
[2024-09-25] MEDS ORDERED: Magnesium Oxide 400 MG Tab PO SCH (09:00)
[2024-09-25] MEDS ORDERED: Tamsulosin HCl 0.4 MG Cap PO SCH (09:00)
[2024-09-25] MEDS ORDERED: Atorvastatin 40 MG Tab PO SCH (09:00)
--- NOTE | 2024-09-25 12:20 | NUR ---
Upon receiving a referral for spiritual care, I visited the patient. Patient is sitting on a chair and alert. His spouse, Riana, is present in the room. They explain about his medical issues, the many amazing recoveries that he has made and that he will D/C home today. They share about their close friends, their membership at the [employer] and their deep Jainism liliana. They are clearly encouraged by conversation centered around the goodness of God. I provided therapeutic listening and prayer with good results as they voiced gratitude for the care given and the prayer prayed.
[2024-09-25] MEDS ORDERED: MAGNESIUM OXID500 MG PO (13:54)
[2024-09-25] MEDS ORDERED: FINA5 PO (13:54)
[2024-09-25] MEDS ORDERED: ONDA4ODT MM (13:57)
[2024-09-25] MEDS ORDERED: CEPH500 PO (13:58)
[2024-09-25] MEDS ORDERED: INSULIN LI100 UNIT/6 SC (14:01)
[2024-09-25 15:19] VITALS: BP 139/54
--- NOTE | 2024-09-25 17:03 | NUR ---
DISCHARGE: PT D/C @1640 VIA WHEELCHAIR WITH . IV REMOVED BY SEAMSTRESS FITTER W/O COMPLICATIONS. KIMANI FROM FOOD PANTRY IN TO GIVE FOOD PRIOR TO D/C. PT HAS FOLLOW-UP WITH PCP ON September @ 1440. PT AND AWARE. NO QUESTIONS AT TIME OF D/C.
== END 2024-09-25 16:43 | disposition home or self-care (01) | DRG 812 ==
LOC: ER 17:43 → MEDS 17:44 → ER 17:44 → MEDS 17:44 → EDBEDREQSVC 22:31 → MEDS 22:51
PROVIDERS: Family Medicine; Nurse Practitioner Acute Care; Student in an Organized Health Care Education/Training Program; ADMIT Internal Medicine
PROC: 30233N1 Transfusion of Nonautologous Red Blood Cells into Peripheral Vein, Percutaneous Approach (ICD-10-PCS; principal; 2024-09-24)
DX: D62 Acute posthemorrhagic anemia (principal); N39.0 Urinary tract infection, site not specified; I50.32 Chronic diastolic (congestive) heart failure; K21.9 Gastro-esophageal reflux disease without esophagitis; I25.10 Atherosclerotic heart disease of native coronary artery without angina pectoris; N40.0 Benign prostatic hyperplasia without lower urinary tract symptoms; J06.9 Acute upper respiratory infection, unspecified; E11.9 Type 2 diabetes mellitus without complications; M62.838 Other muscle spasm; G89.4 Chronic pain syndrome; I48.91 Unspecified atrial fibrillation; I11.0 Hypertensive heart disease with heart failure; G20.A1 Parkinson's disease without dyskinesia, without mention of fluctuations; F02.80 Dementia in other diseases classified elsewhere, unspecified severity, without behavioral disturbance, psychotic disturbance, mood disturbance, and anxiety; G47.33 Obstructive sleep apnea (adult) (pediatric); E78.5 Hyperlipidemia, unspecified; R04.0 Epistaxis; M19.90 Unspecified osteoarthritis, unspecified site; Z96.643 Presence of artificial hip joint, bilateral; Z96.651 Presence of right artificial knee joint; Z87.440 Personal history of urinary (tract) infections; Z79.84 Long term (current) use of oral hypoglycemic drugs; Z86.73 Personal history of transient ischemic attack (TIA), and cerebral infarction without residual deficits; Z85.820 Personal history of malignant melanoma of skin; Z79.82 Long term (current) use of aspirin; Z79.891 Long term (current) use of opiate analgesic; Z79.4 Long term (current) use of insulin; Z90.81 Acquired absence of spleen; Z87.891 Personal history of nicotine dependence
CPT/HCPCS: 0241U; 36415; 36430; 51702; 71045; 80048; 80053; 81001; 82947; 83735; 83880; 85014; 85018; 85025; 85027; 86850; 86900; 86901; 86923; 87077; 87086; 87186; 93005; 93010; 94640; 94664; 94760; 96374; 99285-25; A9270; G0378; J0696; J7030; J7040; P9016

== ENCOUNTER → 2024-10-02 | Outpatient (CLI) | payer MEDICARE, OTHER ==
[~2024-10-02] MED LIST changes: +CEPH500 PO; +FINA5 PO; +INSULIN LI100 UNIT/6 SC; +MAGNESIUM OXID500 MG PO; +ONDA4ODT MM
== END ==
LOC: LAB SHORT 12:37 → LAB 12:37
DX: J06.9 Acute upper respiratory infection, unspecified (principal)
CPT/HCPCS: 87070; 87077; 87186; 87205

== ENCOUNTER 2025-01-02 09:46 | Emergency (ER) | payer MEDICARE, OTHER ==
[~2025-01-02] VITALS: Ht 165.1 cm; Wt 68.0 kg
[2025-01-02 10:22] VITALS: BP 151/80
[2025-01-02] MEDS ORDERED: Lidocaine 2% Jelly Uro-Jet UR ONE (10:45)
[2025-01-02 10:49] LABS: BASOPHILS ABSOLUTE AUTO 0.08 K/mm3 (0.00-0.23); BASOPHILS PERCENT AUTO 1 % (0-2); EOSINOPHILS ABSOLUTE AUTO 0.17 K/mm3 (0.00-0.68); EOSINOPHILS PERCENT AUTO 2 % (0-6); Hematocrit 38.5 % (37.0-53.0); Hemoglobin 12.3 g/dL (13.5-17.5); IMMATURE GRAN ABSOLUTE AUTO 0.03 K/mm3 (0.00-0.10); IMMATURE GRAN PERCENT AUTO 0 % (0-1); LYMPHOCYTES ABSOLUTE AUTO 2.25 K/mm3 (0.84-5.20); LYMPHOCYTES PERCENT AUTO 23 % (21-46); MONOCYTES ABSOLUTE AUTO 1.02 K/mm3 (0.16-1.47); MONOCYTES PERCENT AUTO 10 % (4-13); Mean Corpuscular HGB Conc 31.9 g/dL (31.5-36.5); Mean Corpuscular Volume 90 fL (80-100); NEUTROPHILS ABSOLUTE AUTO 6.34 K/mm3 (1.96-9.15); NEUTROPHILS PERCENT AUTO 64 % (41-73); NRBC ABSOLUTE 0.00 K/mm3 (0.00-0.02); NRBC Auto 0.0 /100 WBC (0.0-0.2); Platelet Count 335 K/mm3 (150-400); RDW Coefficient Variation 25.2 % (11.7-14.2); RDW Standard Deviation 79.5 fL (35.1-46.3)
[2025-01-02 11:16] LABS: Alanine Aminotransfer (ALT/SGP 19.0 U/L (12-78); Albumin, Blood 3.7 g/dL (3.4-5.0); Albumin/Globulin Ratio 0.8 (0.8-1.8); Anion Gap 7.0 mmol/L (3-11); Aspartate Aminotrans (AST/SGOT 22.0 U/L (12-37); Bilirubin, Total 0.6 mg/dL (0.1-1.0); Blood Urea Nitrogen 24.0 mg/dL (8-24); CO2, Blood 28.0 mmol/L (21-32); Calcium, Blood 9.2 mg/dL (8.5-10.1); Chloride, Blood 103.0 mmol/L (98-108); Creatinine, Blood 1.01 mg/dL (0.60-1.20); Globulin, Blood 4.5 g/dL (2.2-4.0); Glucose, Blood 206.0 mg/dL (70-99); Potassium, Blood 4.1 mmol/L (3.5-5.5); Sodium, Blood 134.0 mmol/L (136-145); Total Protein, Blood 8.2 g/dL (6.4-8.2)
[2025-01-02 11:26] LABS: Source, Urine Foley catheter
[2025-01-02 11:51] LABS: Bilirubin, Urine Neg (Neg); Color, Urine Yellow (P-Yellow); Glucose Qualitative, Urine Neg (Neg); Ketones, Urine Neg (Neg); Leukocyte Esterase, Urine 3+ (Neg); Protein, Urine 2+ (Neg); Specific Gravity, Urine 1.015 (1.003-1.022); Urobilinogen, Urine NORM (Normal)
[2025-01-02 11:59] LABS: White Blood Cells, Urine 50-100 /hpf (0-5)
[2025-01-02 12:00] LABS: Red Blood Cells, Urine 25-50 /hpf (0-2)
[2025-01-02] MEDS ORDERED: CefTRIAXone Sodium 1,000 MG in NS 50 ML IV ONE (13:30)
[2025-01-02] MEDS ORDERED: CEPH500 PO (14:15)
[2025-01-07] MEDS ORDERED: Veetids 500500 MG PO (10:32)
== END 2025-01-02 14:30 | disposition home or self-care (01) ==
LOC: ER 09:46
PROVIDERS: Emergency Medicine
DX: N39.0 Urinary tract infection, site not specified (principal); Z79.82 Long term (current) use of aspirin; Z79.4 Long term (current) use of insulin; Z79.899 Other long term (current) drug therapy
CPT/HCPCS: 51702; 51798; 80053; 81001; 85025; 87077; 87086; 87186; 96365-59; 99283-25; J0696

== ENCOUNTER → 2025-01-21 | Outpatient (CLI) | payer MEDICARE, OTHER ==
[~2025-01-21] MED LIST changes: +Veetids 500500 MG PO
== END ==
LOC: LAB 12:31 → LAB SHORT 12:31
DX: R30.0 Dysuria (principal)
CPT/HCPCS: 87077; 87086; 87186

== ENCOUNTER → 2025-01-28 | Outpatient (CLI) | payer MEDICARE, OTHER | LOC: LAB SHORT 10:31 → LAB 10:31 | DX: R33.9 Retention of urine, unspecified (principal) | CPT/HCPCS: 87086 ==

== ENCOUNTER 2025-02-18 10:48 | Emergency (ER) | payer MEDICARE, OTHER ==
[~2025-02-18] VITALS: Ht 170.2 cm; Wt 68.0 kg
[2025-02-18 10:55] VITALS: BP 121/101
[2025-02-18 11:26] LABS: BASOPHILS ABSOLUTE AUTO 0.03 K/mm3 (0.00-0.23); BASOPHILS PERCENT AUTO 0 % (0-2); EOSINOPHILS ABSOLUTE AUTO 0.01 K/mm3 (0.00-0.68); EOSINOPHILS PERCENT AUTO 0 % (0-6); Hematocrit 38.0 % (37.0-53.0); Hemoglobin 12.9 g/dL (13.5-17.5); IMMATURE GRAN ABSOLUTE AUTO 0.11 K/mm3 (0.00-0.10); IMMATURE GRAN PERCENT AUTO 1 % (0-1); LYMPHOCYTES ABSOLUTE AUTO 1.83 K/mm3 (0.84-5.20); LYMPHOCYTES PERCENT AUTO 9 % (21-46); MONOCYTES ABSOLUTE AUTO 1.72 K/mm3 (0.16-1.47); MONOCYTES PERCENT AUTO 8 % (4-13); Mean Corpuscular HGB Conc 33.9 g/dL (31.5-36.5); Mean Corpuscular Volume 92 fL (80-100); NEUTROPHILS ABSOLUTE AUTO 17.71 K/mm3 (1.96-9.15); NEUTROPHILS PERCENT AUTO 83 % (41-73); NRBC ABSOLUTE 0.00 K/mm3 (0.00-0.02); NRBC Auto 0.0 /100 WBC (0.0-0.2); Platelet Count 314 K/mm3 (150-400); RDW Coefficient Variation 17.6 % (11.7-14.2); RDW Standard Deviation 60.1 fL (35.1-46.3)
[2025-02-18 11:26] LABS: Source, Urine Fem Cath
[2025-02-18 11:44] LABS: Bilirubin, Urine Neg (Neg); Color, Urine Yellow (P-Yellow); Glucose Qualitative, Urine Neg (Neg); Ketones, Urine Neg (Neg); Leukocyte Esterase, Urine 3+ (Neg); Protein, Urine 3+ (Neg); Specific Gravity, Urine 1.020 (1.003-1.022); Urobilinogen, Urine NORM (Normal)
[2025-02-18 12:13] LABS: Red Blood Cells, Urine 25-50 /hpf (0-2); White Blood Cells, Urine 50-100 /hpf (0-5)
[2025-02-18 12:44] LABS: Alanine Aminotransfer (ALT/SGP 15.0 U/L (12-78); Albumin, Blood 3.7 g/dL (3.4-5.0); Albumin/Globulin Ratio 0.8 (0.8-1.8); Anion Gap 7.0 mmol/L (3-11); Aspartate Aminotrans (AST/SGOT 13.0 U/L (12-37); Bilirubin, Total 0.8 mg/dL (0.1-1.0); Blood Urea Nitrogen 27.0 mg/dL (8-24); CO2, Blood 24.0 mmol/L (21-32); Calcium, Blood 9.5 mg/dL (8.5-10.1); Chloride, Blood 105.0 mmol/L (98-108); Creatinine, Blood 1.12 mg/dL (0.60-1.20); Globulin, Blood 4.5 g/dL (2.2-4.0); Glucose, Blood 190.0 mg/dL (70-99); Potassium, Blood 3.9 mmol/L (3.5-5.5); Sodium, Blood 132.0 mmol/L (136-145); Total Protein, Blood 8.2 g/dL (6.4-8.2)
[2025-02-18] MEDS ORDERED: Cipro500 MG PO (13:26)
== END 2025-02-18 13:45 | disposition home or self-care (01) ==
LOC: ER 10:48
PROVIDERS: Emergency Medicine
DX: N39.0 Urinary tract infection, site not specified (principal); N40.1 Benign prostatic hyperplasia with lower urinary tract symptoms; R33.8 Other retention of urine; I11.0 Hypertensive heart disease with heart failure; I50.22 Chronic systolic (congestive) heart failure; I48.91 Unspecified atrial fibrillation; E78.5 Hyperlipidemia, unspecified; K21.9 Gastro-esophageal reflux disease without esophagitis; G47.33 Obstructive sleep apnea (adult) (pediatric); G30.9 Alzheimer's disease, unspecified; F02.80 Dementia in other diseases classified elsewhere, unspecified severity, without behavioral disturbance, psychotic disturbance, mood disturbance, and anxiety; Z96.0 Presence of urogenital implants; Z87.891 Personal history of nicotine dependence; Z79.82 Long term (current) use of aspirin; Z79.02 Long term (current) use of antithrombotics/antiplatelets; Z79.4 Long term (current) use of insulin; Z79.84 Long term (current) use of oral hypoglycemic drugs; Z79.899 Other long term (current) drug therapy
CPT/HCPCS: 51702; 80053; 81001; 85025; 87086; 99283-25; A9270

== ENCOUNTER → 2025-04-29 | Outpatient (CLI) | payer MEDICARE, OTHER ==
[~2025-04-29] MED LIST changes: +Cipro500 MG PO
== END | disposition home or self-care (01) ==
LOC: LAB 16:03 → LAB SHORT 16:03
DX: R30.0 Dysuria (principal)
CPT/HCPCS: 87077; 87086; 87186